=== PATIENT | female | born 1970 | race Caucasian/White ===

== ENCOUNTER 2016-11-06 09:25 | Emergency (ER) | payer BC | END 2016-11-06 09:35 | disposition home or self-care (01) | LOC: CED 09:25 | DX: N63 Unspecified lump in breast (principal); K21.9 Gastro-esophageal reflux disease without esophagitis | CPT/HCPCS: 99282 ==

== ENCOUNTER → 2016-11-17 | Outpatient (CLI) | payer BC ==
--- NOTE | ~2016-11-17 | MY6 ---
[facility] A Service of [facility] RADIOLOGY TEXT RESULTS PATIENT: NEGRITA RIZZO LOCATION: [facility] : [birth year] UNIT #: [id number] AGE: [address]: Margarito Rodríguez MD SEX: F ORDER DR: [id number] [facility] [address] [place], [place] [address] [id number] O MR#: [id number] Acc #: [id number] NAME: NEGRITA RIZZO : 1970 SEX: F STUDY DATE/TIME: 11/17/2016 13:49 UNIT: [facility] ROOM: STUDY DESCRIPTION: MY Mammogram Dx Dig Napoleon Attending Physician: Margarito Rodríguez M.D. Referring Physician: Margarito Rodríguez M.D. Ordering Physician: Margarito Rodríguez M.D. Primary Care Physician: No Primary Care Physician MEDICAL IMAGING REPORT This report is preliminary unless electronic signature is present EXAM Bilateral digital diagnostic mammogram with CAD. Bilateral breast ultrasound. FINDINGS BILATERAL MAMMOGRAM: CC, MLO, and ML views of both breasts were obtained. Spot compression views were obtained in the CC and MLO projections. The background breast parenchyma consists of scattered fibroglandular densities. There is a well-circumscribed cyst in the medial right breast measuring up to 2.5 cm. This is in the middle third of the glandular tissue, approximate 6-7 cm from the nipple. There is a large cyst in the retroareolar left breast measuring up to 3.7 cm. These cysts but correlate with the palpable abnormalities. No suspicious-appearing masses, microcalcifications, or architectural distortions. BILATERAL ULTRASOUND: Ijmenez-scale and color Doppler ultrasound of both breasts was obtained. The ultrasound confirms bilateral cysts. There is a small retroareolar cyst on the left at the 4 o'clock position; it has some low-level internal echoes. This is likely a complicated cyst and should be followed. IMPRESSION Probably benign findings in the breasts. There is a complex cyst in the retroareolar left breast that can be followed. Several benign cysts are identified elsewhere in the breast tissue. Recommend 6-month follow-up left breast ultrasound. Patients over the age of 40 are entered into a reminder system with target due date for the next mammogram. A result letter will also be sent to the patient. [facility] A Service of [facility] RADIOLOGY TEXT RESULTS PATIENT: NEGRITA RIZZO LOCATION: [facility] : [birth year] UNIT #: [id number] AGE: [address]: Margarito Rodríguez MD SEX: F ORDER DR: BIRADS: 3 Probably benign finding; short interval followup suggested. Dictated by... Jac Watkins M.D. THIS IS AN ELECTRONICALLY VERIFIED REPORT Jac Watkins M.D. at 11/18/2016 8:04 AM MORRIS/harshad TD: 11/17/2016 17:44 JOB #: [id number] MEDICAL IMAGING REPORT Page 1 of 1 COPY
--- NOTE | ~2016-11-17 | US17 ---
[facility] A Service of [facility] RADIOLOGY TEXT RESULTS PATIENT: NEGRITA RIZZO LOCATION: [facility] : 70 UNIT #: [id number] AGE: [address]: Margarito Rodríguez MD SEX: F ORDER DR: [id number] [facility] [address] [place], [place] [address] [id number] O MR#: [id number] Acc #: [id number] NAME: NEGRITA RIZZO : 1970 SEX: F STUDY DATE/TIME: 11/17/2016 14:37 UNIT: [facility] ROOM: STUDY DESCRIPTION: US Breast Bilateral Attending Physician: Margarito Rodríguez M.D. Referring Physician: Margarito Rodríguez M.D. Ordering Physician: Margarito Rodríguez M.D. Primary Care Physician: No Primary Care Physician MEDICAL IMAGING REPORT This report is preliminary unless electronic signature is present EXAM Ultrasound bilateral breasts. INDICATION Bilateral breast masses. Abnormal mammogram. COMPARISON None available. FINDINGS Jimenez-scale and color ultrasound of both breasts were performed. In the right breast, at the site of the palpable abnormality, there is a 2 x 1.6 x 2.4 cm anechoic cyst. This is located at 11 o'clock position approximately 3 cm from the nipple. There is a smaller cyst at the 12 o'clock position, approximately 1 cm from the nipple measuring up to 0.6 cm. In the left breast, there is a 2.7 x 1.2 x 2.6 cm. This is the 4 o'clock position, approximately 2 cm from the nipple. A periareolar cyst at the 4 o'clock position has some low-level internal echoes. This is probably a proteinaceous/hemorrhagic cyst, however, can be followed. IMPRESSION 1. Probably benign cyst in the periareolar left breast. This should be followed at 6 months. 2. Benign cysts in both breasts. Patients over the age of 40 are entered into a reminder system with target due date for the next mammogram. A result letter will also be sent to the patient. BIRADS: 3 Probably benign finding; short interval follow-up suggested. [facility] A Service of [facility] RADIOLOGY TEXT RESULTS PATIENT: NEGRITA RIZZO LOCATION: [facility] : 70 UNIT #: [id number] AGE: [address]: Margarito Rodríguez MD SEX: F ORDER DR: Dictated by... Jac Watkins M.D. THIS IS AN ELECTRONICALLY VERIFIED REPORT Jac Watkins M.D. at 11/18/2016 8:04 AM MORRIS/pio TD: 11/17/2016 16:51 JOB #: [id number] MEDICAL IMAGING REPORT Page 1 of 1 COPY
== END | disposition home or self-care (01) ==
LOC: CMAM 13:30
DX: N63 Unspecified lump in breast (principal); N60.02 Solitary cyst of left breast; N60.01 Solitary cyst of right breast
CPT/HCPCS: 76641; G0204